=== PATIENT | male | born 1975 | race Caucasian/White ===

== ENCOUNTER 2018-11-14 08:11 | Emergency (ER) | payer OTHER | END 2018-11-14 09:28 | disposition home or self-care (01) | LOC: JERFT 08:11 | PROC: 3E0233Z Introduction of Anti-inflammatory into Muscle, Percutaneous Approach (ICD-10-PCS; principal; 2018-11-14) | DX: S13.4XXA Sprain of ligaments of cervical spine, initial encounter (principal); V73.6XXA Passenger on bus injured in collision with car, pick-up truck or van in traffic accident, initial encounter; Y92.414 Local residential or business street as the place of occurrence of the external cause; Y93.89 Activity, other specified; Y99.8 Other external cause status ==

== ENCOUNTER 2023-02-02 21:08 | Emergency (ER) | payer OTHER ==
[2023-02-02 21:16] VITALS: RESP 18; BMI 25.7
[2023-02-02] MEDS ORDERED: ACETAMINOPHEN 1000 MG/100 ML BAG IVPB ONE (21:57)
[2023-02-02] MEDS ORDERED: SODIUM CHLORIDE 0.9% 500 ML INFUS.BAG IV ONE (21:57)
[2023-02-02] MEDS ORDERED: FAMOTIDINE 20 MG/50 ML IVPB 20 MG/50 ML MG IVPB ONE ×2 (21:57→22:41)
[2023-02-02] MEDS ORDERED: MAG HYDROX/AL HYDROX/SIMETH 30 ML UNIT-DOSE CUP PO ONE (21:57)
[2023-02-02 22:13] LABS: BASO % 0.9 % (0-2.0); HEMATOCRIT 39.7 % (35.4-49); HEMOGLOBIN 13.5 GM/dL (11.7-16.9); LYMPH % 23.9 % (8-40); MCH 31.6 pg (25.7-33.7); MEAN CELL VOLUME 93.1 fl (80-96); MONO % 8.6 % (3.8-10.2); NEUT % 64.6 % (42.8-82.8); PLATELET COUNT 217 10^3/uL (134-434); RBC 4.27 M/mm3 (4.00-5.60); RDW 14.5 % (11.9-15.9); WHITE BLOOD COUNT 8.5 K/mm3 (4.0-10.0)
[2023-02-02] MEDS ORDERED: ACETAMINOPHEN INJECTION 100 ML IVPB ONE (22:40)
[2023-02-02] MEDS ORDERED: MAG HYDROX/AL HYDROX/SIMETH 30 ML UNIT-DOSE CUP ONE (22:41)
[2023-02-02 23:01] LABS: ALBUMIN 3.9 g/dl (3.4-5.0); BILIRUBIN,TOTAL 0.3 mg/dL (0.2-1); BLOOD UREA NITROGEN 24.1 mg/dL (7-18); CALCIUM 8.7 mg/dL (8.5-10.1); CREATININE 0.9 mg/dL (0.55-1.3); MAGNESIUM 2.3 mg/dL (1.8-2.4); POTASSIUM 4.3 mmol/L (3.5-5.1); TOT PROT 6.7 g/dl (6.4-8.2)
[2023-02-02 23:09] VITALS: BP 137/96; PULSE 73; TEMP 98.4
== END 2023-02-03 00:06 | disposition home or self-care (01) ==
LOC: JER 21:08
PROC: 3E033GC Introduction of Other Therapeutic Substance into Peripheral Vein, Percutaneous Approach (ICD-10-PCS; principal; 2023-02-02)
PROC: 3E033NZ Introduction of Analgesics, Hypnotics, Sedatives into Peripheral Vein, Percutaneous Approach (ICD-10-PCS; 2023-02-02)
DX: R07.0 Pain in throat (principal); R07.9 Chest pain, unspecified; I45.10 Unspecified right bundle-branch block; F41.0 Panic disorder [episodic paroxysmal anxiety]; R12 Heartburn; R06.02 Shortness of breath; R22.1 Localized swelling, mass and lump, neck; F60.0 Paranoid personality disorder; Z20.822 Contact with and (suspected) exposure to COVID-19
CPT/HCPCS: 0241U-QW; 36415; 71046-TC-FY; 80053; 83735; 84443; 84484; 85025; 93005; 93010; 99285-25

== ENCOUNTER 2023-06-07 04:15 | Day surgery (SDC) | payer OTHER ==
[2023-06-04 11:03] VITALS: BMI 27.6
[2023-06-07 08:53] VITALS: TEMP 97.8
[2023-06-07 11:38] VITALS: RESP 16
[2023-06-07 11:39] VITALS: BP 134/92; PULSE 68
== END 2023-06-07 11:49 | disposition home or self-care (01) ==
LOC: JASU-ENDO 04:15
PROVIDERS: ATTEND Internal Medicine Gastroenterology
PROC: 0DB78ZX Excision of Stomach, Pylorus, Via Natural or Artificial Opening Endoscopic, Diagnostic (ICD-10-PCS; 2023-06-07)
PROC: 0DB68ZX Excision of Stomach, Via Natural or Artificial Opening Endoscopic, Diagnostic (ICD-10-PCS; principal; 2023-06-07 10:15)
DX: K29.50 Unspecified chronic gastritis without bleeding (principal)
CPT/HCPCS: 88305-TC; 88342-TC

== ENCOUNTER 2023-06-19 04:33 | Day surgery (SDC) | payer OTHER ==
[2023-06-15 07:43] VITALS: BMI 27.6
[2023-06-19] MEDS ORDERED: MIDAZOLAM HCL 2 MG/2 ML SINGLE DOSE VIAL ONE (10:57)
[2023-06-19 11:35] VITALS: TEMP 97.5
[2023-06-19 12:16] VITALS: BP 111/70; PULSE 67; RESP 12
== END 2023-06-19 12:19 | disposition home or self-care (01) ==
LOC: JASU-ENDO 04:33
PROVIDERS: ATTEND Internal Medicine Gastroenterology
PROC: 0DJD8ZZ Inspection of Lower Intestinal Tract, Via Natural or Artificial Opening Endoscopic (ICD-10-PCS; principal; 2023-06-19 11:30)
DX: Z12.11 Encounter for screening for malignant neoplasm of colon (principal); K64.8 Other hemorrhoids